=== PATIENT | female | born 1950 | race Caucasian/White ===

== ENCOUNTER → 2019-08-21 12:57 | Outpatient (CLI) | payer MEDICARE, OTHER, SELFPAY ==
--- NOTE | ~2019-08-21 | MM_ITS ---
EXAMINATION: MM screening russel BI w joaquin HISTORY: Screening mammogram TECHNIQUE: Bilateral rotated lateral cc views. Craniocaudal and mediolateral oblique 3-D tomosynthesi s images were obtained and synthetic 2-D images were generated. CAD analysis was submitted and interp reted. COMPARISON: 08/17/2018, 07/06/2016, 06/26/2015 bilateral digital screening mammogram examinations BREAST PARENCHYMAL COMPOSITION: The breasts are heterogeneously dense, which may obscure small masses . FINDINGS: Biopsy marker again noted on the right; history of prior benign right breast biopsy. Stable mild fibroglandular asymmetry. Occasional bilateral benign calcifications. There is no evidence of s uspicious mass, calcification, or architectural distortion to suggest malignancy in either breast. Th ere has been no suspicious interval change. IMPRESSION: 1. No mammographic evidence of malignancy. 2. Recommend routine screening mammography in one year. BI-RADS Category 2: Benign finding(s). Reviewed, dictated and finalized at location A. INSPECTOR
== END ==
PROVIDERS: Visit Provider Obstetrics & Gynecology
DX: Z12.31 Encounter for screening mammogram for malignant neoplasm of breast (principal)
CPT/HCPCS: 77063; 77067

== ENCOUNTER → 2020-08-01 14:06 | Outpatient (CLI) | payer MEDICARE, OTHER, SELFPAY ==
--- NOTE | ~2020-08-01 | US_ITS ---
US breast RT limited DATE: 08/01/2020 15:20 INDICATION: Right breast lump at 6:00 TECHNIQUE: High-resolution ultrasound imaging and color flow imaging targeted to 6:00 3 cm from nippl e at area of clinical complaint COMPARISON: 08/01/2020 diagnostic bilateral digital mammogram FINDINGS: Please refer to the combined bilateral diagnostic mammogram and right breast ultrasound rep ort IMPRESSION: BI-RADS Category 4 Recommendation: Consider ultrasound-guided biopsy of 6:00 mass corresponding to the area of clinical complaint Reviewed, dictated and finalized at Location A. Reviewed, dictated and finalized at location A. GRAPH SERVICE RATER
--- NOTE | ~2020-08-01 | MM_ITS ---
EXAMINATION: MM diagnostic russel BI w joaquin HISTORY: Right breast lump at 6:00 3 cm from nipple TECHNIQUE: Bilateral full field and right spot ML, MLO and craniocaudal 3-D tomosynthesis images were performed and synthetic 2-D images were generated. CAD analysis was submitted and interpreted. High resolution targeted breast ultrasound was performed. COMPARISON: , 08/17/2018, 07/06/2016 bilateral digital screening mammogram examinations BREAST PARENCHYMAL COMPOSITION: The breasts are heterogeneously dense, which may obscure small masses . FINDINGS: MAMMOGRAPHIC FINDINGS: There are scattered bilateral benign calcifications. No suspicious mass or architectural distortion, malignant calcification, skin thickening or retractio n of either breast is evident. ULTRASOUND: Targeted ultrasound at area of clinical complaint at 6:00 3 cm from the nipple reveals a lobular hypo echoic solid circumscribed lesion measuring approximately 7 x 7 x 5.6 mm, with internal vascularity. There is through transmission and posterior enhancement. The sonographic features may be consistent w ith fibroadenoma but are nonspecific. Consider ultrasound-guided biopsy. IMPRESSION: 1. 5.6 x 7 mm solid mass at area of clinical complaint of breast lump at 6:00 3 cm from nipple 2. Consider ultrasound-guided biopsy BI-RADS category 4, suspicious findings. Reviewed, dictated and finalized at location A. RONMENTAL SERVICES MANAGER
== END ==
PROVIDERS: PCP Family Medicine; Visit Provider Obstetrics & Gynecology
DX: Z01.419 Encounter for gynecological examination (general) (routine) without abnormal findings (principal); N63.0 Unspecified lump in unspecified breast; R92.8 Other abnormal and inconclusive findings on diagnostic imaging of breast
CPT/HCPCS: 76642; 77062; 77066; G0279

== ENCOUNTER 2021-09-02 05:54 | Emergency (ER) | payer MEDICARE, OTHER, SELFPAY ==
--- NOTE | ~2021-09-02 | CT_ITS ---
EXAMINATION: CT abdomen pelvis w con INDICATION: Epigastric pain TECHNIQUE: Computed tomographic images of the abdomen and pelvis were obtained after the administrati on of 100 cc of Omnipaque 350 intravenous contrast. The dose-length product (DLP) was 399.37 mGy-cm. Automated exposure control and iterative reconstruction technique were employed. COMPARISON: None available FINDINGS: There are a few tree-in-bud opacities of the visualized lower lobes, likely infectious or i nflammatory. The heart size is normal. The liver, pancreas, and adrenal glands are normal. Punctate c alcifications in an otherwise normal spleen likely represent healed granulomatous disease. There is m ild distention of the gallbladder. The right kidney is unremarkable. There are multiple peripelvic cy sts of the left kidney. There is calcified atherosclerosis of the aorta and many of the other arterie s. No pathologically enlarged abdominal or pelvic lymph nodes are identified. The appendix is normal. There is no free intraperitoneal gas or evidence of bowel obstruction. A moderate volume of colonic stool is present. Calcified uterine fibroids are noted. There is a small fat-containing umbilical her andrea. IMPRESSION: 1. Gallbladder distention which could be due to cholecystitis or fasting state. Recommend correlation for right upper quadrant tenderness. Reviewed, dictated and finalized at location A. ATIONS SUPPORT COORDINATOR
--- NOTE | ~2021-09-02 | US_ITS ---
EXAMINATION: US abdomen limited DATE: 09/02/2021 09:45 INDICATION: Right upper quadrant pain TECHNIQUE: Multiple grayscale and Doppler ultrasound images of the abdomen were obtained. COMPARISON: None available FINDINGS: The head, body, and tail of the pancreas are normal. The liver is normal with normal echoge nicity and echotexture. No surface nodularity. Normal hepatopetal flow in the main portal vein. Stone s are present in the gallbladder which is mildly distended. There is no gallbladder wall thickening o r pericholecystic fluid. The normal common bile duct measures 6 mm. There was no sonographic Sumner s ign. IMPRESSION: 1. Gallbladder distention and cholelithiasis without gallbladder wall thickening or pericholecystic f luid. Findings are equivocal for acute cholecystitis. Consider nuclear hepatobiliary scan if there is clinical suspicion for cholecystitis. Reviewed, dictated and finalized at location A. AND MAXILLOFACIAL PATHOLOGIST IMPRESSION: 1. Gallbladder distention and cholelithiasis without gallbladder wall thickenin g or pericholecystic fluid. Findings are equivocal for acute cholecystitis. Con brass chaser nuclear hepatobiliary scan if there is clinical suspicion for cholecystit is.
--- NOTE | ~2021-09-02 | XR_ITS ---
EXAMINATION: XR chest 2V DATE: 09/02/2021 06:30 INDICATION: Centralized chest pain and shortness of breath TECHNIQUE: PA and lateral views of the chest are obtained. COMPARISON: 08/03/2019 FINDINGS: The lungs are free of acute opacities. There is no pleural effusion or pneumothorax. The ca rdiomediastinal silhouette is normal. There is mild thoracic spondylosis. IMPRESSION: 1. No acute cardiopulmonary abnormality. Reviewed, dictated and finalized at location A. ICAL ASSOCIATE
[2021-09-02 05:59] VITALS: BP 195/67; PULSE 78; RESP 13; TEMP 36.4; O2SAT 100
[2021-09-02 06:10] VITALS: O2SAT 100
--- NOTE | 2021-09-02 06:17 | ECG_ITS ---
Measurements Intervals [place] Rate: 74 P: 78 [place]: 178 QRS: 55 QRSD: 77 T: 53 QT: 377 QTc: 420 Interpretive Statements SINUS RHYTHM BASELINE ARTIFACT- I, III, AVL, V5-V6 NORMAL ECG Electronically Signed On 09-02-2021 6:27:15 GOVERNMENT SERVICES PROFESSIONAL by Peter Carbone D.O.
[2021-09-02] MEDS: ASPIRIN 81 MG CHEWABLE TABLET 324 MG PO (06:21)
[2021-09-02 06:31] LABS: Basophils Absolute Auto 0.1 K/mm3 (0.0-0.1); Basophils Percent Auto 0.6 % (0.2-1.2); Eosinophils Absolute Auto 0.3 K/mm3 (0-0.3); Eosinophils Percent Auto 1.8 % (0-4.4); Hematocrit 42.9 % (37.0-47.0); Immature Granulocyte Absolute 0.05 K/mm3 (0.00-0.031); Immature Granulocyte Percent A 0.4 % (0-0.5); Lymphocytes Absolute Auto 3.72 K/mm3 (0.9-3.2); Lymphocytes Percent Auto 26.2 % (18.3-44.2); Mean Corpuscular Hemoglobin 29.8 pg (26-34); Mean Corpuscular Volume 85.3 fl (80-100); Mean Platelet Volume 10.5 fl (7.4-10.4); Monocytes Absolute Auto 0.7 K/mm3 (0.1-0.6); Monocytes Percent Auto 4.6 % (2.6-8.5); Neutrophils Absolute Auto 9.5 K/mm3 (1.3-6.7); Neutrophils Percent Auto 66.4 % (45.5-73.1); Platelet Count Result 368 k/mm3 (150-375); Red Blood Count 5.03 M/mm3 (4.2-5.4); Red Cell Distribution Width 13.3 % (11.5-14.5); White Blood Count 14.2 K/mm3 (4.5-10.0)
[2021-09-02 06:42] LABS: Prothrombin Time 12.9 Seconds (11.1-14.7)
[2021-09-02 06:43] LABS: Partial Thromboplastin Time 29.7 SECONDS (22.3-36.8)
[2021-09-02 06:52] LABS: Troponin I < 0.012 ng/mL (0.000-0.034)
[2021-09-02 06:58] LABS: Alanine Aminotransferase 20 U/L (4-35); Albumin Level 4.2 g/dL (3.5-5.1); Alkaline Phosphatase 74 U/L (38-126); Anion Gap 11 mmol/L (8-16); Aspartate Amino Transferase 47 U/L (14-36); Blood Urea Nitrogen 23 mg/dL (7-17); Carbon Dioxide 26 mmol/L (22-30); Chloride 103 mmol/L (98-107); Estimated CRCL calculation 38 ml/min; Estimated Glomerular Filt Rate 55; Glucose 133 mg/dL (65-110); Lipase 450 U/L (23-300); Potassium 3.2 mmol/L (3.4-5.0); Sodium 140 mmol/L (137-145)
--- NOTE | 2021-09-02 07:07 | ED.CHESTPAIN ---
HPI - Chest Pain General Chief Complaint: Chest Pain Stated Complaint: chest pain Time Seen by Provider: 09/02/21 07:02 Source: RN notes reviewed History of Present Illness HPI narrative: Patient presents emergency department from home for chest pain. Patient states that symptoms woke her from sleeping at approximately 4:30 AM. The pain is located in the lower midsternal chest and the upper abdomen described as aching and. Patient states is associated shortness of breath. States she initially thought it was heartburn and so she took Gas-X and Tums with no relief she denies any fevers or chills vomiting diarrhea or any other symptoms Related Data Home Medications Medication Instructions Recorded Confirmed norethindrone ac-eth estradiol 1 tablet DAILY 08/03/19 02/11/21 [[place]] Allergies Allergy/AdvReac Type Severity Reaction Status Date / Time No Known Allergies Allergy Mild Verified 09/02/21 06:14 Review of Systems Review of Systems: Gen.: Denies fevers or chills ENT: Denies congestion Respiratory: Ports shortness of breath or chest pain CV: Reports chest pain GI: Reports upper abdominal pain, denies nausea, emesis or diarrhea Musculoskeletal: Denies back pain or muscle pain Neuro: Denies numbness, tingling, weakness or focal weakness Skin: Denies rash Except as documented, all other systems reviewed and negative [facility] Past Medical History Medical History COPD (chronic obstructive pulmonary disease) HTN (hypertension) Melena Carbone's neuroma of both feet Seasonal allergies Sinusitis Surgical History Surgical History H/O tubal ligation Status post rotator cuff repair left Social History Social History Years smoked: 3 Smoking status: Former smoker Tobacco type: cigarettes Second hand tobacco smoke exposure: No Smoking end date: 07/11/88 Alcohol intake: never Substance use: never Substance use type: does not use Gender identity (if verbalized by the patient): Female Sexual Orientation (if Verbalized by the Patient): Straight or Heterosexual Exam Narrative: APPEARANCE: No acute distress, nontoxic, resting in bed EYES: EOMI HEENT: Normocephalic, atraumatic, OMM RESPIRATORY: No respiratory distress Clear to auscultation bilaterally with no rhonchi wheezing or rales. CARDIOVASCULAR: Regular rate and rhythm without murmurs rubs or gallops. ABDOMINAL: Soft, nondistended, tender palpation epigastric and right upper quadrant and left upper quadrant no tenderness right lower quadrant left lower quadrant no rebound or guarding MUSCULOSKELETAl: Moves all extremities. No clubbing, cyanosis or edema. NEURO: Awake and alert. Following commands, speech normal, no focal deficits SKIN:: Warm, dry. No rashes lesions or abrasions PSYCHIATRIC: Normal affect/mood, Course Course Emergency Course: Patient states she is feeling better at this time Discussed with Dr. Jacobs presentation work-up at this time feels patient may be discharged home with Cipro and follow-up in the office tomorrow Discussed with patient results of workup and diagnosis. Discussed need for follow-up with primary care, proper use of medication, and reasons to return to the emergency department. Patient understands and agrees to current treatment plan Vital Signs Vital signs: Vital Signs Temperature 97.6 F 09/02/21 05:59 Pulse Rate 78 09/02/21 05:59 Respiratory Rate 13 09/02/21 05:59 Blood Pressure 195/67 H 09/02/21 05:59 Pulse Oximetry 100 09/02/21 05:59 Temperature 97.6 F 09/02/21 05:59 Pulse Rate 66 09/02/21 09:06 Respiratory Rate 18 09/02/21 09:06 Blood Pressure 142/60 H 09/02/21 09:06 Pulse Oximetry 96 09/02/21 09:06 MDM - Chest Pain Lab Data Result diagrams: 09/02/21 06:18 09/02/21 06:18
[2021-09-02 09:06] VITALS: BP 142/60; PULSE 66; RESP 18; O2SAT 96
[2021-09-02] MEDS: CIPROFLOXACIN 500 MG TAB PO (10:10)
[2021-09-02 10:35] LABS: Troponin I < 0.012 ng/mL (0.000-0.034)
[2021-09-02 11:04] VITALS: BP 157/64; PULSE 68; RESP 18; O2SAT 99
== END 2021-09-02 11:06 | disposition home or self-care (01) ==
PROVIDERS: Emergency Medicine; Emergency Provider Emergency Medicine; PCP Family Medicine
DX: K80.20 Calculus of gallbladder without cholecystitis without obstruction (principal); J44.9 Chronic obstructive pulmonary disease, unspecified; I10 Essential (primary) hypertension; Z87.891 Personal history of nicotine dependence; G57.63 Lesion of plantar nerve, bilateral lower limbs; R07.9 Chest pain, unspecified
CPT/HCPCS: 36415; 71046; 74177; 76705; 80053; 83690; 84484; 85025; 85610; 85730; 93005; 96365; 99284; A9270; J0131; Q9967

== ENCOUNTER 2021-09-07 13:09 | Outpatient (CLI) | payer MEDICARE, OTHER, SELFPAY ==
[2021-09-07 13:46] LABS: Alanine Aminotransferase 20 U/L (4-35); Albumin Level 4.5 g/dL (3.5-5.1); Alkaline Phosphatase 71 U/L (38-126); Amylase 98 U/L (30-110); Aspartate Amino Transferase 26 U/L (14-36); Bilirubin,Total 0.8 mg/dL (0.2-1.3); Lipase 126 U/L (23-300)
== END 2021-09-07 13:10 | disposition home or self-care (01) ==
LOC: ANHSURGERY 13:15
PROVIDERS: PCP Family Medicine; Visit Provider Surgery
DX: K80.10 Calculus of gallbladder with chronic cholecystitis without obstruction (principal)
CPT/HCPCS: 36415; 80076; 82150; 83690; 86850; 86900; 86901

== ENCOUNTER 2021-09-09 00:29 | Day surgery (SDC) | payer MEDICARE, OTHER, SELFPAY ==
[2021-09-03 14:05] VITALS: BMI 23.9
--- NOTE | 2021-09-03 14:22 | PC.NURSE ---
Report to the Outpatient Waiting Room, entrance under the green pavilion located off [facility], at time _1030_ on date _09/09/21_. OR Time: _1230__. - You and your visitor will be asked a series of questions to screen for COVID 19 for your protection. - A mask is required within the hospital. Preoperative COVID Testing Requirements: NONE Patients may have clear liquids (water, carbonated beverages, clear teas, apple juice) until 3 hours prior to surgery (0930 AM) with a maximum of 20 ounces. - No food from midnight until time of surgery Take the following medications with a SIP of water the morning of surgery: _GABAPENTIN__ Medications to discontinue: _NAPROXEN PER DR. RANGEL, VIT D3 & B12 - 3 DAYS PRIOR TO SURGERY, Date to take last dose_09/05/21_ Please no make-up, nail kuwaiti, hairspray, perfume, deodorant, or body powder the day of surgery. No jewelry (including any body piercings) or valuables the day of surgery, leave them at home. Please take a shower or bath the night before, or the morning of, surgery with an antibacterial soap. Wear comfortable, loose fitting clothing. - Jewelry must be removed prior to entering the operating room. Rings and piercings that are not removed may be cut off. - The hospital will not accept responsibility for valuables. - Please leave all valuables, including medications, at home the day of surgery. If you are going home after surgery, a licensed city driver must drive you home. - NO public transportation without another adult. - We recommend that an adult stay with you for 24 hours following discharge. - We also recommend that you do not drive, make important decision, drink alcoholic beverages, or take any drugs that were not prescribed by your health care provider for at least 24 hours after your discharge time. One visitor will be allowed to accompany the patient into the hospital. Patients visitor will be instructed to remain with patient at all times or leave the building. We will allow the visitor to come back to the postoperative area when patient is ready. Follow any additional instructions given to you from your surgeon. [facility] AM OF SURGERY Telephone instructions given to ___PT and asked if any additional questions and then verbalized understanding. Patient advised to call surgeon office or pre surgery nurse liaisonJOSE [phone] if any additional questions.
[2021-09-09] VITALS (9 sets, daily range): BP systolic 111–179; BP diastolic 56–85; PULSE 68–116; RESP 13–18; TEMP 36.2–36.9; O2SAT 98–100
--- NOTE | 2021-09-09 07:05 | WPDHPUPDATE1 ---
History and Physical Update Update Date/Time: 09/09/21 07:05 History and Physical has been reviewed, including an updated exam of the patient. There are NO changes in the patient's condition. Risks, benefits, and alternatives have been discussed and questions answered. Patient agrees to proceed with procedure.
[2021-09-09] MEDS: LACTATED RINGERS 1,000 ML 30 ML IV CONT ×2 (11:05→13:20)
[2021-09-09] MEDS: ACETAMINOPHEN 500 MG TABLET 1000 MG PO (11:11)
[2021-09-09] MEDS: KETOROLAC 15 MG/ML VIAL (*BKC) IV PUSH (11:11)
--- NOTE | 2021-09-09 11:16 | WPDANESEPPF ---
Anes - Initial Pre Proc Eval Procedure: Operation Date: 09/09/21 12:30 Proposed Procedures p Laparoscopic Cholecystectomy - Leif Jacobs MD Date/Time: 09/09/21 11:16 Surgeon: Leif Jacobs MD Pre Op Diagnosis: chronic cholecystitis with cholelithiasis Patient Data Age: 71 Gender: F Height: 1.6 m Weight: 60 kg Last Vital Signs Temp 36.9 C 09/09/21 10:42 Pulse 75 09/09/21 10:42 Resp 18 09/09/21 10:42 BP 150/56 H 09/09/21 10:42 Pulse Ox 100 09/09/21 10:42 Allergies Allergy/AdvReac Type Severity Reaction Status Date / Time No Known Allergies Allergy Mild Verified 09/09/21 10:51 Home Medications Medication Instructions Recorded Confirmed Type norethindrone ac-eth estradiol 1 tablet QAM 08/03/19 09/09/21 History [Jinteli] albuterol sulfate 90 mcg/actuation 2 puff INHALATION QID PRN #3 device 04/16/20 09/09/21 Rx aerosol inhaler gabapentin 300 mg capsule 300 mg PO TID 90 Days #270 cap 02/11/21 09/09/21 Rx naproxen 500 mg tablet 500 mg PO BID 90 Days #180 tablet 05/08/21 09/09/21 Rx ciprofloxacin HCl [Cipro] 500 mg PO Q12H #20 tablet 09/02/21 09/09/21 Rx aspirin [Aspir-81] 81 mg PO DAILY 09/03/21 09/09/21 History benzonatate 200 mg QAM 09/03/21 09/09/21 History cholecalciferol (vitamin D3) 1 tab-cap QAM 09/03/21 09/09/21 History cyanocobalamin (vitamin B-12) 1 tab-cap QAM 09/03/21 09/09/21 History hydrochlorothiazide 25 mg PO QAM 09/03/21 09/09/21 History loratadine 10 mg QAM 09/03/21 09/09/21 History omeprazole 40 mg PO QAM 09/03/21 09/09/21 History Patient hx anesthesia problems: other (MOTION SICKNESS) Family hx anesthesia problems: none Results Review: All pre-operative results and documents have been reviewed as part of the pre-operative evaluation. [facility] Past Medical History Medical History COPD (chronic obstructive pulmonary disease) HTN (hypertension) Melena Carbone's neuroma of both feet Seasonal allergies Sinusitis Surgical History Surgical History H/O tubal ligation Status post rotator cuff repair left Social History Social History Years smoked: 3 Smoking status: Former smoker Tobacco type: cigarettes Second hand tobacco smoke exposure: No Smoking end date: 07/11/88 Alcohol intake: never Substance use: never Substance use type: does not use Living arrangements: with family Gender identity (if verbalized by the patient): Female Sexual Orientation (if Verbalized by the Patient): Straight or Heterosexual Spiritual care concerns: No Anes - Eval Final PreProcedure Day of Procedure 09/09/21 11:16 Patient weight: normal Heart: regular rate and rhythm Lungs: decreased breath sounds Airway: Mallampati scale class II Neurological: alert and oriented Last oral intake: >/= 8 hours ASA classification: III Emergent: no Anesthetic plan: proceed Anesthesia type and monitoring: general ETT and standard monitoring Results Review: All pre-operative results and documents have been reviewed as part of the pre-operative evaluation. Informed Consent: The patient's anesthetic plan and its attendant risks and benefits were discussed with the patient/family/POA. Questions were solicited and answers provided to the satisfaction of the patient/family/POA.
[2021-09-09] MEDS: ceFAZolin 2 GM/D5W 50 ML 2 GM/50 ML BAG IVPB (12:17)
[2021-09-09] MEDS: BUPIVACAINE/EPINEPHRINE 0.25% 10 ML VIAL 30 ML INFILTRATE (12:28)
--- NOTE | 2021-09-09 13:11 | P.OP_ITS ---
Procedure Note - Detailed Date of Procedure 09/09/21 Pre-op Diagnosis chronic cholecystitis with cholelithiasis Post-op Diagnosis same Procedure Performed Laparoscopic cholecystectomy Surgeon Leif Jacobs MD Pipe Fitter Supervisor Natalya ARNOLD Anesthesia general and local (0.25% Marcaine with epinephrine) Indications Patient is a 71-year-old woman with severe epigastric pain after eating a fried chicken meal. She went to the emergency room. She was noted to have tenderness in the right upper quadrant and evidence of gallstones with cholecystitis on imaging. She is taken to surgery now for laparoscopic cholecystectomy. Findings Multiple stones in the gallbladder, no biliary ductal dilatation, no liver abnormalities. Mild chronic inflammation. Description of Procedure Patient was taken to surgery and induced into general anesthesia. The abdomen is prepped and draped. Trocars were placed in the usual fashion using 0.25% Marcaine with epinephrine. [employer] optical trocars were used. The gallbladder was decompressed with a laparoscopic aspirator. The cholecystotomy was closed with a Vicryl endoloop. The gallbladder was retracted anterosuperiorly. Dissection was carried out in the cholecystohepatic triangle. The cystic duct and cystic artery were dissected clearly. The gallbladder was dissected off the liver at its lower 3rd. Critical view was achieved. We then securely clipped and divided the cystic duct and cystic artery. The gallbladder was then freed of its remaining attachments to the liver. Bleeding was minimal. Cautery was used for hemostasis. Once the gallbladder was freed, it was placed in an Endo-Catch bag and retrieved through the 10 11 epigastric trocar site. We replaced the epigastric trocar and reviewed the right upper quadrant. All looked good with no evidence of bleeding or bile leakage. We then evacuated CO2 and removed the trocar sleeves. The fascia was closed at the epigastric trocar with 0 Vicryl suture. All skin wounds were closed with subcuticular 4-0 Monocryl skin suture. The wounds were dressed with Exofin surgical adhesive. The patient was awakened and taken to recovery in good condition. Sponge and needle counts were correct x2. Estimated Blood Loss -5 Drains No Packing No Pathology yes (Gallbladder) Complications No immediate complications Condition stable Disposition PACU
[2021-09-09] MEDS: SCOPOLAMINE 1.5 MG PATCH TRANSDERM (13:35)
[2021-09-09] MEDS: ONDANSETRON INJ 4 MG/2 ML VIAL IV PUSH (13:50)
--- NOTE | 2021-09-09 15:01 | SUR.PHASEII ---
1500 DR FIELD AWARE OF BP 178/67 & HR 74- NO ORDERS TO TREAT AT THIS TIME. OKAY TO DISCHARGE PT HOME & HAVE HER RESUME HYPERTENSION MEDICATIONS.
== END 2021-09-09 15:22 | disposition home or self-care (01) ==
PROVIDERS: PCP Family Medicine; Visit Provider Surgery
PROC: 0FT44ZZ Resection of Gallbladder, Percutaneous Endoscopic Approach (ICD-10-PCS; CPT 47562; principal; 2021-09-09 12:30)
DX: K80.10 Calculus of gallbladder with chronic cholecystitis without obstruction (principal); I10 Essential (primary) hypertension; J44.9 Chronic obstructive pulmonary disease, unspecified; Z87.891 Personal history of nicotine dependence; Z79.51 Long term (current) use of inhaled steroids; Z79.82 Long term (current) use of aspirin
CPT/HCPCS: 47562; 88304; A9270; C1713; J0690; J1100; J1170; J1885; J2250; J2405; J2704; J2710; J3010; J7120

== ENCOUNTER → 2021-10-08 10:31 | Outpatient (CLI) | payer MEDICARE, OTHER, SELFPAY ==
--- NOTE | ~2021-10-08 | MM_ITS ---
EXAMINATION: MM screening russel BI w joaquin HISTORY: Screening mammogram TECHNIQUE: Craniocaudal and mediolateral oblique 3-D tomosynthesis images were obtained and synthetic 2-D images were generated. CAD analysis was submitted and interpreted. COMPARISON: 08/01/2020, 08/21/2019, 08/17/2018 BREAST PARENCHYMAL COMPOSITION: The breasts are heterogeneously dense, which may obscure small masses . FINDINGS: RIGHT BREAST: There is no suspicious mass, calcification, or architectural distortion to suggest eloise gnancy. There has been no significant interval change. Of note, ultrasound-guided biopsy of a sonogra phically detected right breast mass was recommended on prior examination. LEFT BREAST: There is no suspicious mass, calcification, or architectural distortion to suggest malig michael. There has been no significant interval change. IMPRESSION: 1. No mammographic evidence of malignancy. 2. Targeted right breast ultrasound is recommended to reevaluate the mass previously recommended for biopsy. BI-RADS Category 0: Incomplete: Needs additional imaging evaluation. Reviewed, dictated and finalized at location A. IMPRESSION: 1. No mammographic evidence of malignancy. 2. Targeted right breast ultrasound is recommended to reevaluate the mass previ ously recommended for biopsy. BI-RADS Category 0: Incomplete: Needs additional imaging evaluation.
== END ==
PROVIDERS: PCP Family Medicine; Visit Provider Obstetrics & Gynecology
DX: Z12.31 Encounter for screening mammogram for malignant neoplasm of breast (principal); R92.8 Other abnormal and inconclusive findings on diagnostic imaging of breast
CPT/HCPCS: 77063; 77067

== ENCOUNTER → 2021-10-30 09:10 | Outpatient (CLI) | payer MEDICARE, OTHER, SELFPAY ==
--- NOTE | ~2021-10-30 | US_ITS ---
US breast RT limited DATE: 10/30/2021 10:05 INDICATION: Targeted right breast ultrasound of previously reported 5.6 x 7 mm solid 6:00 mass on 07/12 Limited right breast ultrasound examination TECHNIQUE: High-resolution ultrasound imaging targeted at 6:00 3 cm from nipple and subareolar area COMPARISON: 08/01/2020 diagnostic bilateral mammogram and bilateral breast ultrasound examination 10/08/2021 bilateral screening mammogram FINDINGS: The previously demonstrated 6.7 x 5.6 mm circumscribed vascular lesion with through transmi ssion at 6:00 3 cm from the nipple on 08/01/2020 right breast ultrasound examination is no longer evid ent. IMPRESSION: BI-RADS Category 1: Negative Recommendation: Routine mammographic screening Reviewed, dictated and finalized at Location A. Reviewed, dictated and finalized at location A.
== END ==
PROVIDERS: PCP Family Medicine; Visit Provider Obstetrics & Gynecology
DX: R92.8 Other abnormal and inconclusive findings on diagnostic imaging of breast (principal)
CPT/HCPCS: 76642

== ENCOUNTER → 2022-12-09 12:19 | Outpatient (CLI) | payer MEDICARE, OTHER, SELFPAY ==
--- NOTE | ~2022-12-09 | MM_ITS ---
EXAMINATION: MM screening russel BI w joaquin HISTORY: Screening mammogram TECHNIQUE: Craniocaudal and mediolateral oblique 3-D tomosynthesis images were obtained and synthetic 2-D images were generated. CAD analysis was submitted and interpreted. COMPARISON: October 30, 2021 Limited right breast ultrasound examination 10/08/2021 bilateral screening mammogram examination 08/01/2020 diagnostic right mammogram and limited right breast ultrasound examination BREAST PARENCHYMAL COMPOSITION: FINDINGS: Biopsy marker on the right; history of prior benign right breast biopsies. Occasional bilateral benign calcifications. There is no evidence of suspicious mass, calcification, o r architectural distortion to suggest malignancy in either breast. There has been no suspicious inter dominique change. IMPRESSION: 1. No mammographic evidence of malignancy. 2. Recommend routine screening mammography in one year. BI-RADS Category 2: Benign finding(s). Reviewed, dictated and finalized at location A.
--- NOTE | ~2022-12-09 | DEXA_ITS ---
Bone Density Report Name: CAIN HASKINS Age: 72 Sex: Female Ethnicity: White Date of : 1950 Indication: postmenopausal; screening for osteoporosis; Referring Provider: Moe, Mart Palacio Study: Bone densitometry was performed. Exam Date: December 09, 2022 Accession number: [id number] Bone Density: Region BMD T-score Z-score Classification AP Spine (L1-L4) 1.001 -0.4 1.8 Normal Femoral Neck (Left) 0.709 -1.3 0.6 Osteopenia Total Hip (Left) 0.871 -0.6 1.0 Normal Femoral Neck (Right) 0.716 -1.2 0.7 Osteopenia Total Hip (Right) 0.879 -0.5 1.1 Normal Total Hip Mean 0.875 -0.6 1.1 Normal World Health Organization criteria for BMD impression classify patients as: Normal (T-score at or above -1.0), Osteopenia (T-score between -1.0 and -2.5), or Osteoporosis (T-score at or below -2.5). 10-year Fracture Risk(1): Major Osteoporotic Fracture 9.4% Hip Fracture 1.3% Reported Risk Factors: [place] (), Neck BMD=0.716, BMI=23.9 (1) FRAX(R) Version 3.08. Fracture probability calculated for an untreated patient. Fracture probability may be lower if the patient has received treatment. Previous Exams: Region Exam Age BMD T-score BMD Change BMD Change Date g/cm2 vs Baseline vs Previous AP Spine(L1-L4) 12/09/2022 72 1.001 -0.4 -0.004 -0.004 08/17/2018 68 1.005 -0.4 Total Hip(Left) 12/09/2022 72 0.871 -0.6 -0.004 -0.004 08/17/2018 68 0.875 -0.5 Total Hip(Right) 12/09/2022 72 0.879 -0.5 0.010 0.010 08/17/2018 68 0.869 -0.6 *Denotes significance at 95% confidence level, LSC for AP Spine = 0.022 g/cm2, LSC for Total Hip = 0.027 g/cm2 Clinical Information Provided by Patient: Has used the following medications: HRT (i.e. estrogen/hormone therapy), Vitamin D Patient maximum height was 63 Menopause Age: 40 No regular weight bearing exercise Drinks caffeinated beverages Onset of menses at age 17 Number of children 2 Impression: The patient has low bone mass, based on the Left Femoral Neck T-score. The patient has an estimated ten-year risk of hip fracture of 1.3% and an estimated ten-year risk of major fracture of 9.4%, based on the WHO FRAX algorithm. No significant bone loss was observed. Discussion: BONE DENSITY IS LOW AT ONE OR MORE SKELETAL SITES. This patient's lowest T-score is low at one or more skeletal sites. It meets the World Health Organization's
== END ==
PROVIDERS: PCP Family Medicine; Visit Provider Obstetrics & Gynecology
DX: Z12.31 Encounter for screening mammogram for malignant neoplasm of breast (principal); N95.1 Menopausal and female climacteric states; E28.39 Other primary ovarian failure; M85.852 Other specified disorders of bone density and structure, left thigh; M85.851 Other specified disorders of bone density and structure, right thigh
CPT/HCPCS: 77063; 77067; 77080

== ENCOUNTER 2023-06-15 03:51 | Day surgery (SDC) | payer MEDICARE, OTHER, SELFPAY ==
[2023-06-07 08:39] VITALS: BMI 23.8
--- NOTE | 2023-06-13 09:30 | SUR.PREOP ---
Patient called regarding upcoming procedure. Message left on patient's voicemail regarding preop instructions, appointment times, and procedure prep.
--- NOTE | 2023-06-14 18:22 | PM.HPGS ---
History of Present Illness History of Present Illness Consent: Risks, benefits, and alternatives have been discussed and questions answered. Patient agrees to proceed with procedure. Chief complaint: GERD Narrative: Megan Carbone is a 73 year old female Who was referred for investigation of frequent attacks of pain in her abdomen.? This started after her cholecystectomy.? That procedure was complicated by extensive bruising throughout her abdomen that began a couple of days later.? At the incisions for the procedure she will get either a dull quick pain or sharp pain that may last longer.? These at times will double her over particularly if they are on the right side of her abdomen.? These pains are not related to having a bowel movement.? She has had no nausea vomiting or change in appetite.? She does have chronic acid reflux for which she takes omeprazole. Review of Systems Review of Systems: All systems reviewed & are unremarkable except as noted in HPI and below PMFSH Past Medical History Medical History Chronic diarrhea COPD (chronic obstructive pulmonary disease) HTN (hypertension) Melena Carbone's neuroma of both feet Osteopenia Seasonal allergies Sinusitis Surgical History Surgical History H/O tubal ligation History of laparoscopic cholecystectomy 09/09/2021 Status post rotator cuff repair left Social History Social History Smoking packs per day: 1 Smoking cigarettes per day: 20.0 Years smoked: 5 Smoking pack-years: 5.00 Smoking status: Former smoker Tobacco type: cigarettes Second hand tobacco smoke exposure: No Smoking end date: 07/11/88 Alcohol intake: never Substance use: never Substance use type: does not use Living arrangements: with family Occupation/Education: retired Gender identity (if verbalized by the patient): Female Sexual Orientation (if Verbalized by the Patient): Straight or Heterosexual Spiritual care concerns: No Meds Home Medications and Allergies Home Medications Medication Instructions Recorded Confirmed Type norethindrone acetate 1 mg-ethinyl 1 tablet PO QAM 08/03/19 06/15/23 History estradiol 5 mcg tablet (Jinteli) aspirin 81 mg tablet,delayed 81 mg PO DAILY 09/03/21 06/15/23 History release cholecalciferol (vitamin D3) 1 tab-cap PO QAM 09/03/21 06/15/23 History cyanocobalamin (vitamin B-12) 1 tab-cap PO QAM 09/03/21 06/15/23 History hydrochlorothiazide 25 mg tablet See Rx Instructions .Route 12/27/22 06/15/23 Rx .COMPLEX #90 tabs naproxen 500 mg tablet 500 mg PO BID #180 tabs 02/03/23 06/15/23 Rx albuterol sulfate 90 mcg/actuation 2 puff inhalation QID PRN 05/30/23 06/15/23 Rx aerosol inhaler (ProAir HFA) shortness of breath or wheezing #3 device amlodipine 5 mg tablet 5 mg PO DAILY #90 tabs 05/30/23 06/15/23 Rx cholestyramine-aspartame 4 gram 4 g PO DAILY #90 ea 05/30/23 06/15/23 Rx oral powder for susp in a packet (Cholestyramine Light) gabapentin 300 mg capsule 300 mg PO TID 90 days #270 caps 05/30/23 06/15/23 Rx loratadine 10 mg tablet 10 mg PO QAM #90 tabs 05/30/23 06/15/23 Rx benzonatate 200 mg capsule See Rx Instructions .Route 06/10/23 06/15/23 Rx .COMPLEX #270 caps omeprazole 40 mg capsule,delayed 40 mg PO QAM #90 caps 06/10/23 06/15/23 Rx release Allergies Allergy/AdvReac Type Severity Reaction Status Date / Time No Known Allergies Allergy Mild Verified 06/15/23 10:11 Exam Const: General: alert Orientation/consciousness: patient oriented x3 Resp: Auscultation: clear to auscultation bilaterally Cardio: Rhythm: regular rhythm GI: GI Palp: Yes Soft to palpation and No Tenderness to palpation present (GI) Neuro: General: patient oriented x3 Assessment and Plan Assessment and plan (1) Epigastric pain: Code(s
[2023-06-15 10:14] VITALS: BP 161/51; PULSE 76; RESP 18; TEMP 36.5; O2SAT 99; BMI 24.6
[2023-06-15] MEDS: AMPICILLIN 2 GM/NS 100 ML 2 GM/100 ML BAG IVPB (10:17)
[2023-06-15] MEDS: GENTAMICIN 80MG/SOD CHL 50 ML 80 MG/50 ML BAG 100 MG IVPB (10:29)
[2023-06-15] MEDS: LACTATED RINGERS 1,000 ML 150 ML IV CONT (11:08)
--- NOTE | 2023-06-15 11:11 | SUR.OPER ---
Ampicillin IVPB and Gentamycin IVPB given please see anesthesia's chart for medication documentation.
[2023-06-15 11:14] VITALS: BP 131/61; PULSE 86; RESP 23; O2SAT 96
[2023-06-15 11:24] VITALS: BP 120/96; PULSE 75; RESP 20; O2SAT 99
[2023-06-15 11:34] VITALS: BP 157/76; PULSE 70; RESP 20; O2SAT 100
== END 2023-06-15 11:45 | disposition home or self-care (01) ==
PROVIDERS: PCP Family Medicine; Visit Provider Internal Medicine Gastroenterology
PROC: 0DJ08ZZ Inspection of Upper Intestinal Tract, Via Natural or Artificial Opening Endoscopic (ICD-10-PCS; CPT 43235; principal; 2023-06-15 11:00)
DX: K21.00 Gastro-esophageal reflux disease with esophagitis, without bleeding (principal); K22.2 Esophageal obstruction; I10 Essential (primary) hypertension; J44.9 Chronic obstructive pulmonary disease, unspecified; Z87.891 Personal history of nicotine dependence; Z79.82 Long term (current) use of aspirin; Z79.51 Long term (current) use of inhaled steroids
CPT/HCPCS: 43239; 87081; 88305; J0290; J1580; J2704; J7120